=== PATIENT | female | born 1990 | race Caucasian/White ===

== ENCOUNTER 2020-06-06 15:30 | Outpatient (CLI) | payer OTHER ==
--- NOTE | 2020-06-06 20:12 | RAD ---
CHEST TWO VIEWS: 06/06/20 The heart is normal in size and the lungs are clear. No acute infiltrate was seen, nor or there effus ions. At most, some of the markings in the left base may be beginning to be slightly prominent, but t his finding is marginal, at best. IMPRESSION: No definite acute changes. POS: HOME
== END 2020-06-06 15:31 | disposition home or self-care (01) ==
LOC: BURRAD 15:30
PROVIDERS: ATTEND Physician Assistant
DX: U07.1 COVID-19 (principal); R06.02 Shortness of breath; R07.1 Chest pain on breathing
CPT/HCPCS: 71046

== ENCOUNTER 2020-07-04 10:54 | Emergency (ER) | payer OTHER, SELFPAY ==
[2020-07-04] MEDS ORDERED: Aspirin Chewable 81 MG TAB ONE (11:20)
[2020-07-04 11:22] LABS: #Basophils 0.1 thou/uL (0.0-0.2); #Eosinphils 0.1 thou/uL (0.0-0.7); #Monocytes 0.6 thou/uL (0.11-0.59); #Neutrophils 4.3 thou/uL (1.40-6.50); %Basophils 1.1 % (0.0-1.0); %Eosinophils 1.6 % (0.0-10.0); %Lymphocytes 27.7 % (21.0-51.0); %Monocytes 8.9 % (0.0-10.0); %Neutrophils 60.7 % (42.0-75.0); Hemoglobin 14.2 g/dL (12.0-16.0); Mean Corpuscular HGB CONC 32.2 g/dL (32.0-36.0); Mean Corpuscular Hemoglobin 29.7 pg (27.0-31.0); Mean Corpuscular Volume 92.3 fL (78.0-98.0); Mean Platelet Volume 6.5 fL (7.4-10.4); Platelet Count 219 thou/uL (130-400); RBC Distribution Width 12.3 % (11.5-14.5); Red Blood Cell (RBC) Count 4.79 mill/uL (4.20-5.40)
[2020-07-04 11:37] LABS: ALT (SGPT) 11 U/L (8-55); AST (SGOT) 13 U/L (5-34); Albumin 4.4 g/dL (3.5-5.0); Alkaline Phosphatase 93 U/L (40-110); Anion Gap 13 mmol/L (10-20); BUN (Urea Nitrogen) 10 mg/dL (7.0-18.7); Bilirubin, Total 0.7 mg/dL (0.2-1.2); Calc. Creatinine Clearance 0 mL/min (70-130); Calcium 9.2 mg/dL (7.8-10.44); Carbon Dioxide 25 mmol/L (22-29); Chloride 105 mmol/L (98-107); Globulin 2.6 g/dL (2.4-3.5); Glucose 102 mg/dL (70-105); Potassium 4.2 mmol/L (3.5-5.1); Sodium 139 mmol/L (136-145)
[2020-07-04] MEDS ORDERED: Ketorolac Tromethamine 30 MG/ML VIAL ONE (15:30)
--- NOTE | 2020-07-04 18:38 | RAD ---
CHEST TWO VIEWS: 07/04/20 Comparison is made with the 06/06 study. The heart remains normal in size and the lungs are clear. No infiltrate or effusion was seen. There i s no vascular congestion or edema. There are no findings to explain chest pain. IMPRESSION: No acute finding. POS: HOME
== END 2020-07-04 15:37 | disposition home or self-care (01) ==
LOC: BURERS 10:54
DX: R07.9 Chest pain, unspecified (principal); I10 Essential (primary) hypertension; E78.5 Hyperlipidemia, unspecified
CPT/HCPCS: 36415; 71046; 80053; 84484; 85025; 85379; 93005; 94760; 96374; J1885

== ENCOUNTER 2021-01-09 10:08 | Emergency (ER) | payer MEDICAID, OTHER | END 2021-01-09 10:48 | disposition home or self-care (01) | LOC: BURERS 10:08 | DX: S90.32XA Contusion of left foot, initial encounter (principal); M77.8 Other enthesopathies, not elsewhere classified; E78.00 Pure hypercholesterolemia, unspecified; W04.XXXA Fall while being carried or supported by other persons, initial encounter ==

== ENCOUNTER 2021-08-21 07:54 | Outpatient (CLI) | payer OTHER ==
[2021-08-21] MEDS ORDERED: Iopamidol 370 76% 100 ML VIAL FS ONE (07:55)
== END 2021-08-21 07:55 | disposition home or self-care (01) ==
LOC: BURCT 07:54
PROVIDERS: ATTEND Family Medicine
DX: R22.1 Localized swelling, mass and lump, neck (principal)
CPT/HCPCS: 70491; Q9967

== ENCOUNTER 2021-12-20 20:09 | Emergency (ER) | payer OTHER ==
[2021-12-20] MEDS ORDERED: Ondansetron PF 4 MG/2 ML Vial ONE (21:16)
[2021-12-20 21:18] LABS: #Basophils 0.1 thou/uL (0.0-0.2); #Eosinphils 0.3 thou/uL (0.0-0.7); #Lymphocytes 2.5 thou/uL (1.20-3.40); #Monocytes 0.8 thou/uL (0.11-0.59); #Neutrophils 6.3 thou/uL (1.40-6.50); %Eosinophils 3.3 % (0.0-10.0); %Lymphocytes 24.6 % (21.0-51.0); %Monocytes 7.9 % (0.0-10.0); %Neutrophils 63.2 % (42.0-75.0); Hemoglobin 13.8 g/dL (12.0-16.0); Mean Corpuscular HGB CONC 34.5 g/dL (32.0-36.0); Mean Corpuscular Hemoglobin 31.7 pg (27.0-31.0); Mean Corpuscular Volume 91.7 fL (78.0-98.0); Mean Platelet Volume 6.4 fL (7.4-10.4); Platelet Count 298 thou/uL (130-400); RBC Distribution Width 11.4 % (11.5-14.5); Red Blood Cell (RBC) Count 4.36 mill/uL (4.20-5.40)
[2021-12-20 21:36] LABS: ALT (SGPT) 8 U/L (8-55); AST (SGOT) 12 U/L (5-34); Albumin 4.4 g/dL (3.5-5.0); Alkaline Phosphatase 94 U/L (40-110); Anion Gap 14 mmol/L (10-20); BUN (Urea Nitrogen) 15 mg/dL (7.0-18.7); Bilirubin, Total 0.6 mg/dL (0.2-1.2); Calc. Creatinine Clearance 0 mL/min (70-130); Calcium 9.5 mg/dL (7.8-10.44); Carbon Dioxide 25 mmol/L (22-29); Chloride 104 mmol/L (98-107); Estimated GFR 95; Globulin 2.7 g/dL (2.4-3.5); Glucose 92 mg/dL (70-105); Lipase 71 U/L (8-78); Potassium 4.2 mmol/L (3.5-5.1); Protein, Total 7.1 g/dL (6.0-8.3); Sodium 139 mmol/L (136-145)
[2021-12-20 21:48] LABS: Bilirubin Negative (Negative); Blood, Urine Negative (Negative); Clarity Clear (Clear); Glucose, Urine (Dipstick) Negative (Negative); Ketone, Urine Negative (Negative); Leukocyte Negative (Negative); Nitrite Negative (Negative); Protein, Urine (Dipstick) Negative (Neg-Trace); Specific Gravity, Urine 1.015 (1.005-1.030); Urobilinogen 0.2 mg/dL (Less than 2); pH, Urine 7.5 (5.0-9.0)
[2021-12-20 21:57] LABS: Pregnancy Test - Urine (BHCG) Negative (Negative); Pregu Control Background? CLEAR/WHITE (CLR/WHITE); Pregu Control Bar Appear? YES (CONTROL BAR); Specific Gravity 1.015 (1.002-1.036)
== END 2021-12-20 22:15 | disposition home or self-care (01) ==
LOC: BURERS 20:09
DX: R10.13 Epigastric pain (principal); R11.2 Nausea with vomiting, unspecified; E78.00 Pure hypercholesterolemia, unspecified; Z79.899 Other long term (current) drug therapy
CPT/HCPCS: 36415; 74177; 80053; 81003; 81025; 83605; 83690; 85025; 96374; J2405

== ENCOUNTER 2022-05-10 15:11 | Emergency (ER) | payer OTHER ==
[2022-05-10] MEDS ORDERED: Dexamethasone 4 mg/ml Vial ONE (15:51)
== END 2022-05-10 16:13 | disposition home or self-care (01) ==
LOC: BURERS 15:11
DX: B34.9 Viral infection, unspecified (principal); Z20.822 Contact with and (suspected) exposure to COVID-19; E78.00 Pure hypercholesterolemia, unspecified
CPT/HCPCS: 87804; 96372; 99284; J1100; U0003; U0005

== ENCOUNTER 2022-12-19 14:01 | Emergency (ER) | payer OTHER ==
[2022-12-19] MEDS ORDERED: Ketorolac Tromethamine 30 MG/ML VIAL ONE (14:23)
[2022-12-19] MEDS ORDERED: Meclizine HCl 25 MG TAB ONE (14:23)
[2022-12-19] MEDS ORDERED: Ketorolac Tromethamine 60 MG/2 ML VIAL ONE (14:24)
== END 2022-12-19 14:42 | disposition home or self-care (01) ==
LOC: BURERS 14:01
DX: R42 Dizziness and giddiness (principal); R51.9 Headache, unspecified; E78.2 Mixed hyperlipidemia
CPT/HCPCS: 96372; 99283; J1885